=== PATIENT | female | born 1985 | race Caucasian/White ===

== ENCOUNTER 2017-05-24 12:36 | Inpatient (IN) | payer SELFPAY ==
[~2017-05-24] VITALS: Ht 152.4 cm; Wt 74.5 kg
[2017-05-24] MEDS ORDERED: LACTATED RINGER'S 1,000 ML IV PRN (13:00)
[2017-05-24 13:12] VITALS: Ht 152.4 cm; Wt 74.5 kg
[2017-05-24] MEDS ORDERED: LACTATED RINGER'S 1,000 ML IV SCH (13:13)
[2017-05-24 13:18] VITALS: BP 102/70; PULSE 79; RESP 20
[2017-05-24] MEDS ORDERED: IBUPROFEN 600 MG TAB PO PRN (13:30)
[2017-05-24] MEDS ORDERED: CARBOPROST 250 MCG INJ IM PRN ×2 (13:30→21:30)
[2017-05-24] MEDS ORDERED: OXYTOCIN 30 UNITS/LR 500 ML IV SCH ×2 (13:30→14:30)
[2017-05-24] MEDS ORDERED: LIDOCAINE 1% (MPF) 30 ML INJ INJ PRN (13:30)
[2017-05-24] MEDS ORDERED: OXYTOCIN 30 UNITS/LR 500 ML IV PRN ×2 (13:30→21:30)
[2017-05-24] MEDS ORDERED: METHYLERGONOVINE 0.2 MG INJ IM PRN ×2 (13:30→21:30)
[2017-05-24] MEDS ORDERED: MISOPROSTOL 200 MCG TAB PR PRN ×2 (13:30→21:30)
[2017-05-24] MEDS ORDERED: BUTORPHANOL 2 MG INJ IV PRN (13:30)
[2017-05-24] MEDS ORDERED: MINERAL OIL LIGHT 10 ML VIAL TOP PRN (13:35)
[2017-05-24 13:54] LABS: BASOPHILS % 0.2 % (0.0-2.0); EOSINOPHILS % 0.1 % (0.0-7.0); HEMATOCRIT 37.6 % (37.0-47.0); LYMPHOCYTES # 1.1 10^3/ul (0.8-2.9); LYMPHOCYTES % 10.8 % (15.0-51.0); MEAN CORPUSCULAR HGB CONC 34.6 g/dl (32.0-37.0); MEAN CORPUSCULAR VOLUME 92.6 fl (82.0-101.0); MEAN PLATELET VOLUME 12.4 fl (7.4-10.4); MONOCYTE # 0.5 10^3/ul (0.3-0.9); MONOCYTES % 4.8 % (0.0-11.0); NEUTROPHIL # 8.3 10^3/ul (1.6-7.5); NEUTROPHILS % 83.7 % (39.0-77.0); PLATELET COUNT 137 10^3/UL (140-415); RED BLOOD COUNT 4.06 10^6/ul (4.20-5.40); RED CELL DISTRIBUTION WIDTH 12.3 % (11.5-14.5)
[2017-05-24 14:10] LABS: INR 0.88; PROTIME 11.9 Sec (12.2-14.2); PT RATIO 0.9
[2017-05-24 14:11] LABS: PARTIAL THROMBOPLASTIN TIME 26.9 Sec (25.0-35.0)
--- NOTE | 2017-05-24 15:58 | HP ---
Date/Time of Note Date/Time of Note DATE: 05/24/17 TIME: 15:55 OB - History Hx of Present Last Menstrual Period: Aug 20, 2016 Estimated Due Date: May 27, 2017 : 2 Para: 1 Care: Good Care Ultrasounds: Normal mid trimester US Obstetrical Complications: None Medical Complications: None Past Family/Social History * Past Medical, Surgical, Family and Obstetric Histories reviewed from chart. Blood Type: B+ Rubella: immune RPR/VDRL: Negative GBS Status: Negative HBsAG: Negative OB Admission Exam Vital Signs Vital Signs Vital Signs Date Time Temp Pulse Resp B/P Pulse Ox O2 Delivery O2 Flow Rate FiO2 05/24/17 13:18 98.0 79 20 102/70 Room Air Physical Exam HEENT: WNL Heart: Rhythm Normal Lungs: Clear, Equal Abdomen: WNL Extremities: Normal Reflexes: Normal Cervical Dilatation: 7cm Effacement: 100% Station: -2 Membranes: Intact Heart Rate: 140's Accelerations: Accelerations Present Decelerations: No Decelerations Varibility: Marked Contractions on Admission: < 5 Minutes Apart Date/Time Contractions Began: 05/24/2017 AM Frequency of Contractions: q 5 Duration: >60 seconds Last 72 hours Lab Results CBC & BMP 05/24/17 13:10 OB Assessment/Plan Reason for admission: active labor Other Assessment: term gestation Plan: Expectant Management Other plan: proceed with labor JAZMÍN MELLO MD May 24, 2017 15:58
[2017-05-24] MEDS: OXYTOCIN 30 UNITS/LR 500 ML IV SCH ×2 (16:06→20:11)
--- NOTE | 2017-05-24 16:36 | LDN ---
Date/Time of Note Date/Time of Note DATE: 05/24/17 TIME: 16:34 Delivery Summary Normal spontaneous vaginal delivery of a viable female over midline episiotomy Weeks of Gestation 39+ Placenta Delivered: Spontaneously, Intact & Complete Meconium: none Episiotomy: Yes Indication for episiotomy Terminal bradycardia Laceration repair: Midline episiotomy was repaired in normal fashion in layers with 2-0 Vicryl and 2-0 chromic Anesthesia type: Local Estimated blood loss: 300 Sponge & Needle done & correct: Yes All needle counts correct: Yes Any foreign bodies felt in the: No Problems: Infant Delivery Information Sex Infant Sex: female Apgars 1 Minute: 9 5 Minute: 9 Suctioning Nose & mouth suctioned at marcello: Yes Delee suction performed: No Umbilical Cord Umbilical cord with: 3 Vessels Cord presentations: no nuchal cord Cord Blood was obtained: Yes Mother & Baby Disposition Disposition Mom & Baby to Maternity; Good: Yes (Mother and baby were recovered in good condition) Mom transferred to: Other (Maternity) Baby to NICU: No JAZMÍN MELLO MD May 24, 2017 16:36
--- NOTE | 2017-05-24 17:01 | DS ---
Date/Time of Note Date/Time of Note Home following day DATE: 05/24/17 TIME: 17:00 Obstetrical Discharge Record Final Diagnosis Final Diagnosis: Term delivered Other Final Diagnosis Status post vaginal delivery Vaginal Delivery Obstetrical Delivery: Spontaneous, Episiotomy, Repaired Complications Augmentation: Yes Condition on Discharge Physical Assessment Last Vitals: See nurse's note Voiding: Yes Bowel Movement: Yes Breast: Soft, non-tender, Filling Fundus: Firm Abdomen and Incision: Soft bowel sounds present Episiotomy: Healing well Calf Tenderness: No Patient Condition: Good JAZMÍN MELLO MD May 24, 2017 17:01
--- NOTE | 2017-05-24 17:29 | PD.PPDC ---
ACTUARIAL MANAGER Discharge Instruction Provider Information Physician Information 31-year-old female had vaginal delivery Diagnosis Final Diagnosis: Status post vaginal delivery Condition Patient Condition: Good Diet Diet: Resume Regular Diet Activity/Restrictions Activity: Normal Activity May Shower Restrictions: Nothing in the Vagina Return to Work or School: Jul 08, 2017 Follow-up Follow-up with Physician: 4, Week/Weeks Return to clinic for OB Instructions: Breast Tenderness (In clinic) Depression Comment: Pelvic rest 6 weeks JAZMÍN MELLO MD May 24, 2017 17:29
[2017-05-24] MEDS ORDERED: IBUP-1542 PO (17:54)
--- NOTE | 2017-05-24 20:13 | TRIAGE ---
OB Triage Datetime Report Generated by CPN: 05/24/2017 20:13 Datetime: 05/24/2017 20:00 Stage of : Recovery Datetime: 05/24/2017 19:23 Assessment Type: Ongoing Assessment Maternal Assessment Level of Consciousness: Fully Conscious DTR's/Clonus: DTRs 2+; No Clonus Headache: Denies Blurred Vision: No Respiratory Effort: Unlabored; Regular Rhythm; Equal Expansion Breath Sounds, Left: Clear and Equal Breath Sounds, Right: Clear and Equal Nausea/Vomiting: Denies RUQ Epigastric Pain: Denies Lower Extremities Edema: Bilateral Lower Extremities Degree: 1+ Upper Extremities Edema: None Degree: None Facial Edema: None Fall Risk Assessment History of Falling: (0) No Secondary Diagnosis: (0) No Ambulatory Aid: (0) Bedrest/Nurse Assist IV Therapy: (20) Yes Gait: (0) Normal/Bedrest/Immobile Mental Status: (0) Oriented to Own Ability Fall Score: 20 Fall Risk Score Definition: No Risk: No action required Pain Assessment Pain Scale: 0 Pain Presence: None/Denies Pain Type: N/A Pain Goal: 0 Datetime: 05/24/2017 17:55 Stage of : Recovery Pain Assessment Pain Scale: 0 Pain Presence: None/Denies Pain Goal: 0 Datetime: 05/24/2017 17:25 Stage of : Recovery Pain Assessment Pain Scale: 4 Pain Presence: Intermittent Pain Type: Cramping Pain Location: Abdomen Pain Relief Measures: Pain Medication Given Datetime: 05/24/2017 17:01 Stage of : Recovery Datetime: 05/24/2017 16:50 Stage of : Recovery Pain Assessment Pain Scale: 4 Pain Presence: Intermittent Pain Type: Cramping Pain Location: Abdomen Pain Relief Measures: Pain Medication Given Datetime: 05/24/2017 16:35 Stage of : Recovery Pain Assessment Pain Scale: 2 Pain Presence: Constant Pain Type: Cramping Pain Location: Abdomen Datetime: 05/24/2017 16:20 Stage of : Recovery Pain Assessment Pain Scale: 2 Pain Presence: Constant Pain Type: Cramping Pain Location: Abdomen Datetime: 05/24/2017 16:05 Stage of : Recovery Pain Assessment Pain Scale: 2 Pain Presence: Constant Pain Type: Cramping Pain Location: Abdomen Datetime: 05/24/2017 15:50 Stage of : Recovery Temperature Route: Oral Pain Assessment Pain Scale: 2 Pain Presence: Constant Pain Type: Cramping Pain Location: Abdomen Datetime: 05/24/2017 15:30 Labor Evaluation Frequency: 1-2 Monitor Mode: External Duration (sec)2399: 60-80 Quality: Strong Pattern: Normal: <= 5 Contractions in 10 Minutes Resting Tone [place]: Relaxed Heart Rate FHR Baseline Rate: 140 Monitor Mode: External US FHR Baseline Changes: No Baseline Change Variability: Moderate 6-25 bpm Accelerations: Prolonged Decelerations: Early Category: Category I Pain Assessment Pain Scale: 10 Pain Presence: Intermittent Pain Type: Contraction; Pressure Pain Location: Abdomen; Perineum Pain Goal: 2 Pain Relief Measures: Comfort Measures Datetime: 05/24/2017 15:27 Vaginal Exam Dilatation (cms): 10.0 Effacement (%): 100 Station: 1 Exam By: ANAM Datetime: 05/24/2017 15:15 Vaginal Exam Dilatation (cms): 8.0 Effacement (%): 90 Station: 0 Exam By: MAY Datetime: 05/24/2017 15:04 Vaginal Exam Dilatation (cms): 7.5 Effacement (%): 90 Station: 0 Exam By: MAY Datetime: 05/24/2017 15:00 Labor Evaluation Frequency: 1-2 Monitor Mode: External Duration (sec)2399: 40-80 Quality: Strong Pattern: Normal: <= 5 Contractions in 10 Minutes Resting Tone [place]: Relaxed Heart Rate FHR Baseline Rate: 130 Monitor Mode: External US Variability: Moderate 6-25 bpm Accelerations: 15X15 Decelerations: None Category: Category I Pain Assessment Pain Scale: 10 Pain Presence: Intermittent Pain Type: Contraction Pain Location: Abdomen Pain Goal: 2 Pain Relief Measures: Comfort Measures Datetime: 05/24/2017 14:56 Stage of : Recovery Datetime: 05/24/2017 14:30 Labor Evaluation Frequency: 1-2 Monitor Mode: External Duration (sec)2399: 40-60 Quality: Strong Pattern: Normal: <= 5 Contractions in 10 Minutes Resting Tone [place]: Relaxed Heart Rate FHR Baseline Rate: 130 Monitor Mode: External US FHR Baseline Changes: No Baseline Change Variability: Moderate 6-25 bpm Accelerations: 15X15 Decelerations: None Category: Category I Pain Assessment Pain Scale: 9 Pain Presence: Intermittent Pain Type: Contraction; Pressure Pain Location: Abdomen; Perineum Pain Goal: 2 Pain Relief Measures: Comfort Measures Datetime: 05/24/2017 14:00 Labor Evaluation Frequency: 1-3 Monitor Mode: External Duration (sec)2399: 60-90 Quality: Strong Pattern: Normal: <= 5 Contractions in 10 Minutes Resting Tone [place]: Relaxed Heart Rate FHR Baseline Rate: 140 Monitor Mode: External US FHR Baseline Changes: No Baseline Change Variability: Moderate 6-25 bpm Accelerations: 15X15 Decelerations: None Category: Category I Pain Assessment Pain Scale: 9 Pain Presence: Intermittent Pain Type: Contraction Pain Location: Abdomen Pain Goal: 2 Pain Relief Measures: Comfort Measures Datetime: 05/24/2017 13:51 Vaginal Exam Dilatation (cms): 6.0 Effacement (%): 80 Station: -1 Exam By: MAY Datetime: 05/24/2017 13:30 Labor Evaluation Frequency: 3 Monitor Mode: External Duration (sec)2399: 60 Quality: Strong Pattern: Normal: <= 5 Contractions in 10 Minutes Resting Tone [place]: Relaxed Heart Rate FHR Baseline Rate: 130 Monitor Mode: External US FHR Baseline Changes: No Baseline Change Variability: Moderate 6-25 bpm Accelerations: 15X15 Decelerations: None Category: Category I Pain Assessment Pain Scale: 9 Pain Presence: Intermittent Pain Type: Contraction Pain Location: Abdomen Pain Goal: 2 Pain Relief Measures: Comfort Measures Datetime: 05/24/2017 13:24 Vaginal Exam Dilatation (cms): 6.0 Exam By: DR. LOWE Membrane Status: Ruptured Membranes Rupture Method: Artificial Amniotic Fluid Color: Clear Amniotic Fluid Amount: Moderate Amniotic Fluid Odor: None Datetime: 05/24/2017 13:06 Time of Arrival: 05/24/2017 12:29 EGA: 39.4 Arrived By: Ambulatory Arrived From: Home Chief Complaint: uc's since midnight Movement: Present Contractions: Denies/Absent Rupture of Membranes: Denies Vaginal Bleeding: None Vaginal Discharge: Denies Recent Sexual Intercouse: Denies Abdominal Trauma: Not Applicable Patient Complaints: Contractions; Cramping Time Provider Notified: 05/24/2017 13:06 Provider Notified: dr. lowe Initial Plan: sve Datetime: 05/24/2017 13:00 Assessment Type: Admission Assessment Vaginal Bleeding: None Maternal Assessment Level of Consciousness: Fully Conscious DTR's/Clonus: DTRs 2+; No Clonus Headache: Denies Blurred Vision: No Respiratory Effort: Unlabored; Regular Rhythm; Equal Expansion Nausea/Vomiting: Denies RUQ Epigastric Pain: Denies Lower Extremities Edema: None Degree: None Upper Extremities Edema: None Degree: None Facial Edema: None Fall Risk Assessment History of Falling: (0) No Secondary Diagnosis: (0) No Ambulatory Aid: (0) Bedrest/Nurse Assist IV Therapy: (0) No Gait: (0) Normal/Bedrest/Immobile Mental Status: (0) Oriented to Own Ability Fall Score: 0 Fall Risk Score Definition: No Risk: No action required Labor Evaluation Frequency: 2-5 Duration (sec)2399: 60 Quality: Strong Pattern: Normal: <= 5 Contractions in 10 Minutes Resting Tone [place]: Relaxed Heart Rate FHR Baseline Rate: 130 Variability: Moderate 6-25 bpm Accelerations: 15X15 Decelerations: None Category: Category I Pain Assessment Pain Scale: 9 Pain Presence: Intermittent Pain Type: Contraction Pain Location: Abdomen Pain Goal: 2 Membrane Status: Intact Datetime: 05/24/2017 12:53 Membranes Ruptured Date/Time: 05/24/2017 13:24 Presentation 'A': Cephalic Datetime: 05/24/2017 12:44 Maternal Assessment Level of Consciousness: Fully Conscious DTR's/Clonus: DTRs 2+; No Clonus Headache: Denies Blurred Vision: No Respiratory Effort: Unlabored; Regular Rhythm; Equal Expansion Breath Sounds, Left: Clear and Equal Breath Sounds, Right: Clear and Equal Nausea/Vomiting: Denies RUQ Epigastric Pain: Denies Facial Edema: None Fall Risk Assessment History of Falling: (0) No Secondary Diagnosis: (0) No Ambulatory Aid: (0) Bedrest/Nurse Assist IV Therapy: (0) No Gait: (0) Normal/Bedrest/Immobile Mental Status: (0) Oriented to Own Ability Fall Score: 0 Fall Risk Score Definition: No Risk: No action required Datetime: 05/24/2017 12:40 Stage of : Labor Assessment Type: Triage Maternal Assessment Level of Consciousness: Fully Conscious DTR's/Clonus: DTRs 2+; No Clonus Headache: Denies Blurred Vision: No Respiratory Effort: Unlabored; Regular Rhythm; Equal Expansion Breath Sounds, Left: Clear and Equal Breath Sounds, Right: Clear and Equal Nausea/Vomiting: Denies RUQ Epigastric Pain: Denies Lower Extremities Edema: Right Lower Extremity Degree: Pitting Upper Extremities Edema: None Degree: None Facial Edema: None Temperature Route: Axillary Fall Risk Assessment History of Falling: (0) No Secondary Diagnosis: (0) No Ambulatory Aid: (0) Bedrest/Nurse Assist IV Therapy: (0) No Gait: (0) Normal/Bedrest/Immobile Mental Status: (0) Oriented to Own Ability Fall Score: 0 Fall Risk Score Definition: No Risk: No action required
[2017-05-24] MEDS ORDERED: LACTATED RINGER'S 1,000 ML IV* SCH (21:13)
[2017-05-24] MEDS ORDERED: BENZOCAINE 20% 56 ML SPRAY TOP PRN (21:30)
[2017-05-24] MEDS ORDERED: LANOLIN 7 GM TUBE TOP PRN (21:30)
[2017-05-24] MEDS ORDERED: ZOLPIDEM 5 MG TAB PO PRN (21:30)
[2017-05-24] MEDS: MAGNESIUM HYDROXIDE 30ML CUP PO SCH (21:30)
[2017-05-24] MEDS ORDERED: DIBUCAINE 1% 30 GM OINT PR PRN (21:30)
[2017-05-24] MEDS ORDERED: WITCH HAZEL/GLYCERIN PAD PR PRN (21:30)
[2017-05-24] MEDS ORDERED: HYDROCODONE/APAP (5/325) TAB PO PRN ×2 (21:30)
[2017-05-24 21:35] VITALS: BP 106/57; PULSE 61; RESP 18
[2017-05-24] MEDS: IBUPROFEN 600 MG TAB PO SCH (23:25)
[2017-05-25 00:20] VITALS: BP 102/55; PULSE 58; RESP 18
[2017-05-25 04:20] VITALS: BP 98/56; PULSE 80; RESP 18
[2017-05-25] MEDS: IBUPROFEN 600 MG TAB PO SCH ×3 (05:44→17:53)
[2017-05-25 08:46] LABS: BASOPHILS % 0.2 % (0.0-2.0); EOSINOPHILS % 0.3 % (0.0-7.0); HEMATOCRIT 33.6 % (37.0-47.0); HEMOGLOBIN 11.5 g/dl (12.0-16.0); LYMPHOCYTES # 1.6 10^3/ul (0.8-2.9); MEAN CORPUSCULAR HEMOGLOBIN 32.3 pg (29.0-33.0); MEAN CORPUSCULAR HGB CONC 34.2 g/dl (32.0-37.0); MEAN CORPUSCULAR VOLUME 94.4 fl (82.0-101.0); MEAN PLATELET VOLUME 12.7 fl (7.4-10.4); MONOCYTE # 0.7 10^3/ul (0.3-0.9); MONOCYTES % 5.5 % (0.0-11.0); NEUTROPHIL # 10.8 10^3/ul (1.6-7.5); NEUTROPHILS % 81.6 % (39.0-77.0); PLATELET COUNT 121 10^3/UL (140-415); RED BLOOD COUNT 3.56 10^6/ul (4.20-5.40); RED CELL DISTRIBUTION WIDTH 12.6 % (11.5-14.5); WHITE BLOOD COUNT 13.2 10^3/ul (4.8-10.8)
[2017-05-25] MEDS ORDERED: SENNA/DOCUSATE NA (8.6MG/50MG) TAB PO SCH (09:00)
[2017-05-25 09:40] VITALS: BP 98/55; PULSE 85; RESP 18
[2017-05-25] MEDS: MAGNESIUM HYDROXIDE 30ML CUP PO SCH (10:02)
[2017-05-25 16:20] VITALS: BP 112/70; PULSE 62; RESP 18
[2017-05-26] MEDS ORDERED: VARICELLA VACCINE LIVE/PF 1,350 UNIT/0.5 ML ML SC* ONE (09:00)
[2017-05-26] MEDS ORDERED: MEASLES,MUMPS,RUBELLA VACCINE INJ SC* ONE (09:00)
[2017-05-26] MEDS ORDERED: DIPHTH/TET/ACEL PERTUSS (ADULT) 0.5 ML VIAL IM* ONE (09:00)
== END 2017-05-25 18:30 | disposition home or self-care (01) | DRG 775 ==
LOC: OBT 12:36 → L-D 12:42 → OBT 12:55 → PP1 21:43
PROVIDERS: ADMIT Obstetrics & Gynecology; ATTEND Obstetrics & Gynecology
PROC: 10E0XZZ Delivery of Products of Conception, External Approach (ICD-10-PCS; principal; 2017-05-24)
PROC: 0W8NXZZ Division of Female Perineum, External Approach (ICD-10-PCS; 2017-05-24)
DX: O76 Abnormality in fetal heart rate and rhythm complicating labor and delivery (principal); Z37.0 Single live birth; Z3A.39 39 weeks gestation of pregnancy
CPT/HCPCS: 85025; 85610; 85730; 86592; 86900; 86901; G0463; J0595; J2590; J7120